=== PATIENT | male | born 1975 | race Caucasian/White ===

== ENCOUNTER 2022-11-18 08:45 | Emergency (ER) | payer MEDICAID, SELFPAY ==
[2022-11-18 08:46] VITALS: BP 124/88; PULSE 79; RESP 16; TEMP 36.6; O2SAT 99; BMI 20.9
--- NOTE | 2022-11-18 08:49 | RAD_ITS ---
STUDY: X-RAY - LEFT ELBOW REASON FOR EXAM: Male, 47 years old. TRAUMA -- IN ED WAITING ROOM . Pain and tingling. TECHNIQUE: 3 view(s) of the elbow. COMPARISON: None. FINDINGS: Normal visualized humerus, radius and ulna. Normal radiocapitellar and ulnotrochlear articulations. The soft tissue structures are unremarkable. RAD/Elbow min 3 Views IMPRESSION: Normal x-ray examination of the elbow. Electronically Signed: Sandeep Hodge MD at 9:25 EST ,
--- NOTE | 2022-11-18 09:33 | EX.ED.UPPERE ---
HPI History of Present Illness Chief Complaint: Upper Extremity Injury Informant: patient Narrative Narrative: [id number] male presents blunt injury left elbow. Yesterday when the tailgate of the truck came down on it. He states he intermittent paresthesias down his arm. No other injuries. No medications taken. Denies history of gastric ulcers or kidney injury. Prior similar symptoms: No PFSH PFSH Medical History no medical history Home Medications ibuprofen 600 mg tablet 600 mg PO 4X/DAY PRN Pain Or Fever #20 tabs 11/18/22 [Rx Last Taken Unknown] Allergy/AdvReac Type Severity Reaction Status Date / Time No Known Allergies Allergy Verified 11/18/22 08:47 Social History Smoking Status: Never smoker ROS ROS ED Constitutional Constitutional ED: Denies chills, fever(s) or sweats Eyes Eyes: Denies change in vision ENT ENT ED: Denies dysphagia or sore throat Cardiovascular Cardiovascular: Denies chest pain, leg edema, palpitations or racing heartbeat Respiratory/Chest Respiratory/Chest: Denies cough, dyspnea or dyspnea on exertion Gastrointestinal Gastrointestinal: Denies abdominal pain, diarrhea, nausea or vomiting Genitourinary Genitourinary ED: Denies dysuria, hematuria or urinary frequency Musculoskeletal Musculoskeletal: Reports extremity pain; Denies back pain or neck pain Integumentary Denies rash or wounds Neurologic Neurologic: Denies headache(s), paresthesias or weakness EXAM Physical Exam Const Vital Signs: 11/18/22 08:46 Temperature 97.9 F Temperature Source Temporal Pulse Rate 79 Respiratory Rate 16 Blood Pressure 124/88 H Blood Pressure Mean 100 Pulse Ox 99 Oxygen Delivery Method Room Air Positive well nourished and well developed General Appearance ED: well developed and NAD HEENT Reports moist mucous membranes normocephalic and atraumatic Eyes PERRL, EOMs intact bilaterally and conjunctivae normal General Eye ED: Yes normal appearance of both eyes Neck no lymphadenopathy and supple General: Negative for tenderness Chest Wall Chest: Negative for tenderness Resp normal respiratory effort and normal air movement Effort and Inspection: symmetric chest movement; Negative for respiratory distress Cardio regular rate, regular rhythm and no murmurs Peripheral Pulses: pulses 2+ throughout GI normal to inspection, nondistended, normoactive bowel sounds and non-tender Palpation: Negative for guarding or rebound tenderness present Back/Spine no CVA tenderness and no thoracic nor lumbar tenderness Extremity Extremity Narrative: Left upper extremity: No shoulder tenderness there is tenderness to lateral epicondyle with skin intact. No medial tenderness no cubital tunnel tenderness with negative Tinel's. Full range of motion. No wrist tenderness. Skin intact. Neuro vas intact distally. Soft compartments of humerus and forearm. General Extremety ED: Negative for edema or tenderness General Extremity: Negative for edema Neuro oriented x3 and no sensory deficits noted Sensorium / Orientation: awake and alert Skin no rashes or lesions noted and no wounds MDM MDM MDM Narrative Medical decision making narrative: Patient had three-view x-ray left elbow reviewed myself read by radiology is negative. Differential is left elbow contusion. He has soft compartments no clinical signs of compartment syndrome. Roger wrap provided to the left elbow. He started on NSAIDs prescription for NSAIDs written and sent to his pharmacy. He is given follow-up as an outpatient. Work note was given. Radiography Diagnostic Testing: Clinical Impression(s) from Imaging Studies Elbow X-Ray 11/18/22 08:49 IMPRESSION: Normal x-ray examination of the elbow. Electronically Signed: Sandeep Hodge MD at 9:25 EST , Discharge Plan Triage Chief Complaint: Upper Extremity Injury ED Provider: Franklin Jones Dx/Rx/DC Orders Clinical Impression: Contusion of elbow, left, Injury of elbow, left Instructions: ED Contusion, Elbow Prescriptions: New ibuprofen 600 mg tablet 600 mg PO 4X/DAY PRN (Reason: Pain Or Fever) Qty: 20 0RF Primary Care Provider: Care Physician,No Primary Referrals: Tammy Gan [Non-Staff] - 1 Week if not improving Care Physician,No Primary [Primary Care Provider] - Activity Restrictions/Additional Instructions: X-ray left elbow negative. Use Roger wrap for support. Ibuprofen as prescribed. Disposition Disposition: Home, Self Care
[2022-11-18] MEDS: Ibuprofen 600 MG Tablet PO (09:56)
== END 2022-11-18 10:00 | disposition home or self-care (01) ==
PROVIDERS: Emergency Provider Emergency Medicine; Visit Provider Emergency Medicine
DX: S50.02XA Contusion of left elbow, initial encounter (principal); W22.8XXA Striking against or struck by other objects, initial encounter
CPT/HCPCS: 73080; 99283

== ENCOUNTER 2023-10-17 10:18 | Emergency (ER) | payer MEDICAID, SELFPAY ==
[2023-10-17 10:19] VITALS: BP 129/90; PULSE 86; RESP 18; TEMP 36.7; O2SAT 98; BMI 20.9
--- NOTE | 2023-10-17 10:52 | EX.ED.DYSGE1 ---
HPI History of Present Illness Chief Complaint: Cold Sx Detail of Chief Complaint: Productive cough with respiratory symptoms for 2 to 3 weeks Informant: patient Onset/Context/Timing Onset: Weeks Context: Sudden Onset Timing: Continuous and Waxes and wanes Quality: Cough, dyspnea on exertion, upper respiratory symptoms Location: Respiratory Current Severity: Mild Maximum Severity: Moderate Worsened by: Activity Relieved by: Nothing Associated Symptoms Associated Symptoms: Rhinorrhea, congestion, sore throat Narrative Narrative: Patient is a 48-year-old male who is a smoker. He stopped smoking 2 days ago because of the coughing. He denies fever or chills. He does endorse rhinorrhea, congestion, sore throat. Cough is productive at times. Patient denies hemoptysis. Patient denies history of VTE. Patient denies leg pain, swelling or discoloration. Patient had no ill contacts. He states he goes to work and he comes home. He denies headache, he denies visual, ocular auditory symptoms. He denies GI symptoms. He denies myalgias or arthralgias. Prior similar symptoms: No Recent Illness/Hospitalization: No PFSH PFSH Medical History no medical history no medical history Home Medications NK 10/17/23 [History Last Taken Unknown] Allergy/AdvReac Type Severity Reaction Status Date / Time No Known Allergies Allergy Verified 10/17/23 10:18 Surgical History no surgical history no surgical history Social History (Updated 10/17/23 @ 10:[address] Lopez Laguna MD) household members: spouse Smoking Status: Never smoker ROS ROS ED Constitutional Constitutional ED: Denies chills, fever(s), subjective or sweats Eyes Eyes: Denies blurry vision, change in vision or diplopia ENT ENT ED: Reports rhinorrhea and sore throat; Denies ear pain Cardiovascular Cardiovascular: Denies chest pain, orthopnea, palpitations or paroxysmal nocturnal dyspnea Respiratory/Chest Respiratory/Chest: Reports cough, dyspnea, dyspnea on exertion and sputum; Denies orthopnea or paroxysmal nocturnal dyspnea Gastrointestinal Gastrointestinal: Denies abdominal pain, diarrhea, nausea or vomiting Genitourinary Genitourinary ED: Denies dysuria, hematuria or urinary frequency Musculoskeletal Musculoskeletal: Denies arthralgias or myalgias Integumentary Denies rash Neurologic Neurologic: Denies headache(s) or weakness Hematologic/Lymphatic Hematologic/Lymphatic: Reports systems reviewed and no addt'l complaints, except as documented EXAM Physical Exam Const Vital Signs: 10/17/23 10:19 10/17/23 10:32 Temperature 98.1 F Temperature Source Temporal Pulse Rate 86 Respiratory Rate 18 Respiratory Effort Normal Non-Labored Respiratory Pattern Normal Blood Pressure 129/90 H Blood Pressure Mean 103 Pulse Ox 98 Oxygen Delivery Method Room Air Positive well nourished and well developed General Appearance ED: well developed and NAD; Negative for cyanotic, diaphoretic or pallor HEENT Reports moist mucous membranes HEENT Narrative: Head is atraumatic and normocephalic. Ears are normal. TMs are normal. Positive clearish drainage right and left nose. Posterior pharynx unremarkable. Uvula midline. Eyes PERRL and EOMs intact bilaterally General Eye ED: Negative for pale conjunctiva or scleral icterus Neck no lymphadenopathy, supple and no JVD Neck Narrative: Trachea is midline. There is no right or. Chest Wall inspection of chest normal and palpation of chest normal Resp normal respiratory effort and clear to auscultation bilaterally Resp Narrative: There is no friction rub noted over over area patient complains of pleuritic pain. Cardio regular rate, regular rhythm, S1 normal heart sound, S2 normal heart sound and no murmurs GI normal to inspection, nondistended, normoactive bowel sounds, non-tender, non-distended and no masses; Negative for hepatosplenomegaly Palpation: soft Back/Spine no CVA tenderness Extremity normal to inspection General Extremety ED: Negative for edema or tenderness General Extremity: Negative for edema Neuro oriented x3, CN's II-XII intact bilaterally and no sensory deficits noted Sensorium / Orientation: alert Psych mental status grossly normal Skin no rashes or lesions noted, no wounds and skin turgor normal General Skin Exam: Negative for jaundice or pallor MDM MDM MDM Narrative Medical decision making narrative: With significant smoking history colored sputum pleuritic pain will obtain chest x-ray to evaluate for bronchitis versus pneumonia with pleurisy. Chest x-ray was ordered. Blood work was not ordered since he is not tachycardic, tachypneic febrile or hypoxic. Radiography Chest X-Ray - ED: 2 View (Is independently reviewed and interpreted by me at 1129 as negative for acute process. He has slight hyperaeration. Lung parenchyma otherwise normal. Cardiac silhouette and size normal. Perihilar region normal. Osseous structures are unremarkable.) Diagnostic Testing: Clinical Impression(s) from Imaging Studies Chest X-Ray 10/17/23 10:57 IMPRESSION: Hyperinflation. The lungs are clear. Electronically Signed: Sandeep Hodge MD at 11:33 EST , Treatment and Re-Evaluation :: Since patient has productive cough of colored sputum and has been symptoms for minimum of [address] on antibiotics. Discharge Plan Triage Chief Complaint: Cold Sx ED Provider: Lopez Laguna Dx/Rx/DC Orders Clinical Impression: Chronic bronchitis, mucopurulent Instructions: ED Upper Resp Infec Abx Tx Prescriptions: No Action NK Primary Care Provider: Care Physician,No Primary Referrals: Sierra Pabon MD [Med Staff - White Mixing Operator] - 3-5 Days if not improving Care Physician,No Primary [Primary Care Provider] - Disposition Disposition: Home, Self Care
--- NOTE | 2023-10-17 10:57 | RAD_ITS ---
STUDY: X-RAY CHEST REASON FOR EXAM: Male, 48 years old. Productive cough for 2 to 3 weeks TECHNIQUE: PA and lateral views of the chest. COMPARISON: None. FINDINGS: There is hyperinflation of the lungs consistent with chronic obstructive lung disease (COPD). There is no demonstrated pleural abnormality. Normal size heart. Normal mediastinum and ez. Normal visualized pulmonary arteries. Normal visualized aortic arch and descending thoracic aorta. Normal visualized thoracic spine. Normal visualized ribs, clavicles, and shoulders. There is no demonstrated abnormality of the visualized soft tissue structures of the upper abdomen. RAD/Chest PA and Lateral IMPRESSION: Hyperinflation. The lungs are clear. Electronically Signed: Sandeep Hodge MD at 11:33 EST ,
[2023-10-17 12:08] VITALS: BP 125/75; PULSE 85; RESP 16; O2SAT 99
== END 2023-10-17 12:10 | disposition home or self-care (01) ==
LOC: ED 11:39
PROVIDERS: Emergency Provider Emergency Medicine; Visit Provider Emergency Medicine
DX: J41.1 Mucopurulent chronic bronchitis (principal)
CPT/HCPCS: 71046; 99282

== ENCOUNTER 2024-01-24 09:32 | Emergency (ER) | payer MEDICAID, SELFPAY ==
[2024-01-24 09:32] VITALS: BP 128/89; PULSE 93; RESP 15; TEMP 36.4; O2SAT 100; BMI 19.8
--- NOTE | 2024-01-24 10:39 | EX.ED.VIS.EY ---
HPI History of Present Illness Chief Complaint: Eye Problem Onset/Context/Timing Location: Right Eye Onset: Yesterday Context: Gradual Onset Timing: Continuous Worsened by: Nothing Relieved by: Nothing Associated Symptoms Associated Symptoms - Eyes: Crusting, Drainage, Eyelid swelling, Foreign body sensation, Matting, Pain and Redness; Negative for Burning, Itching or Photophobia Narrative Narrative: Patient presents with right eye redness that began yesterday afternoon. Patient states it is gradually gotten worse. Patient thinks there may have been a foreign body in his eye. Patient states he irrigated his eye under the shower. Patient states that the foreign body sensation is now gone. Patient admits to some increased watery drainage from his right eye. Patient denies any purulent drainage. Patient admits to some blurry vision in his right eye. Patient denies any fevers or chills. PFSH PFSH Medical History no medical history no medical history Home Medications doxycycline monohydrate 100 mg capsule 100 mg PO BID #14 CAPSULES 10/17/23 [Rx Last Taken Unknown] Allergy/AdvReac Type Severity Reaction Status Date / Time No Known Allergies Allergy Verified 01/24/24 09:34 Surgical History no surgical history no surgical history Social History household members: spouse Smoking Status: Current every day smoker tobacco type: cigarettes ROS ROS ED Constitutional Constitutional ED: Denies chills or fever(s) Eyes Eyes: Denies blurry vision or change in vision ENT ENT ED: Denies rhinorrhea or sore throat Cardiovascular Cardiovascular: Denies chest pain or palpitations Respiratory/Chest Respiratory/Chest: Denies cough or dyspnea Gastrointestinal Gastrointestinal: Denies nausea or vomiting Genitourinary Genitourinary ED: Denies dysuria or hematuria Musculoskeletal Musculoskeletal: Denies back pain or neck pain Integumentary Denies abscess or rash Neurologic Neurologic: Denies headache(s) or weakness Allergic/Immunologic Allergic/Immunologic ED: Denies mouth swelling or urticaria EXAM Physical Exam Const Vital Signs: 01/24/24 09:32 Temperature 97.6 F L Temperature Source Temporal Pulse Rate 93 Respiratory Rate 15 Blood Pressure 128/89 H Blood Pressure Mean 102 Pulse Ox 100 Oxygen Delivery Method Room Air Positive well nourished and well developed General Appearance ED: well developed and NAD Eyes Eyes Narrative: Pupils are equal, round, and reactive to light bilaterally. Extraocular muscles are intact. Conjunctiva is injected on the right. There are no foreign bodies noted. There is no corneal abrasion visualized. Anterior chamber was clear. There is no hyphema noted. Neck supple and no JVD Neuro oriented x3, CN's II-XII intact bilaterally, moves all extremities and no sensory deficits noted Sensorium / Orientation: alert Motor Exam: strength 5/5 throughout MDM MDM MDM Narrative Medical decision making narrative: Patient was advised of his findings. I do not see any foreign body in the cornea or conjunctiva. Patient was advised that this is likely conjunctivitis. Patient will be given erythromycin ophthalmic ointment. Patient was instructed to apply this ointment 4 times daily. Patient was instructed to wash his hands anytime that he would touch his eye including putting his ointment in. Patient was given a note for work for today. Patient was instructed to follow-up with his primary care physician or ophthalmology in 1 to 2 days. Patient understood and was agreeable with the plan. All questions were answered. Discharge Plan Triage Chief Complaint: Eye Problem ED Provider: Jax Casanova Dx/Rx/DC Orders Clinical Impression: Acute conjunctivitis of right eye, Tobacco use disorder Instructions: ED Conjunctivitis, Bacterial Prescriptions: No Action doxycycline monohydrate 100 mg capsule 100 mg PO BID Qty: 14 0RF Stand Alone Forms: ED Work / School Excuse Primary Care Provider: Care Physician,No Primary Referrals: Jax Zepeda MD [Med Staff - Personal Development Coach] - As soon as possible Eva Reece MD [Med Staff - Active Staff] - As soon as possible Care Physician,No Primary [Primary Care Provider] - Disposition Disposition: Home, Self Care
[2024-01-24] MEDS: Erythromycin Ophthalmic (NSY) 1 GM OPTH.TUBE 1 APPLIC RIGHT EYE (11:05)
[2024-01-24 11:08] VITALS: BP 122/84; PULSE 86; RESP 16; TEMP 36.4; O2SAT 100
== END 2024-01-24 11:09 | disposition home or self-care (01) ==
PROVIDERS: Emergency Provider Emergency Medicine; Visit Provider Emergency Medicine
DX: H10.31 Unspecified acute conjunctivitis, right eye (principal); F17.210 Nicotine dependence, cigarettes, uncomplicated
CPT/HCPCS: 99283